=== PATIENT | male | born 1995 | race Caucasian/White ===

== ENCOUNTER → 2018-06-07 | Outpatient (CLI) | payer BC ==
--- NOTE | 2018-06-08 13:42 | RAD ---
CHEST PA LATERAL Clinical indications: PATIENT STATES COUGH AND SHORTNESS OF BREATH X 3 DAYS. COMPARISON: No previous chest x-ray available. Findings: No acute lung infiltrate or pleural effusion or pulmonary edema or lung mass or pneumothorax is seen. The heart size, pulmonary vasculature, mediastinum and both debra are unremarkable. The osseous structures appear intact. Impression: No acute radiographic abnormality is seen. Electronically signed by: Colton Miramontes MD (06/08/2018 1:38 PM) [facility]
== END | disposition home or self-care (01) ==
LOC: PMG 11:26
PROVIDERS: ATTEND Registered Nurse
DX: R06.02 Shortness of breath (principal); R05 Cough
CPT/HCPCS: 71046

== ENCOUNTER → 2019-01-12 | Outpatient (CLI) | payer BC ==
--- NOTE | 2019-01-12 11:01 | RAD ---
Indication:Right upper quadrant pain. TECHNIQUE: Grayscale, color Doppler and spectral waveform is of the abdomen obtained. COMPARISON:None FINDINGS: Visualized pancreas within normal limits. No aortic aneurysm. IVC is within normal limits. No gallstones, pericholecystic fluid or gallbladder wall thickening. Main portal vein is patent with hepatopedal flow. CBD measures 4 m in diameter and is within normal limits. Liver measures 16 cm in longest dimension and is normal in size with increased echogenicity. Right kidney measures 12.8 cm in length without hydronephrosis. Left kidney measures 12 cm in length without hydronephrosis. Spleen measures 12 cm in length and is normal in size. IMPRESSION: No cholelithiasis. Hepatic steatosis Electronically signed by: Damaso Lowry DO (01/12/2019 10:58 AM) [facility]
--- NOTE | 2019-01-12 15:07 | RAD ---
Indication abdominal pain TECHNIQUE: Upright and supine views of the abdomen pelvis COMPARISON: None FINDINGS: Visualized lung bases are clear. No abnormally dilated bowel loops or air-fluid levels. No abnormal calcification to suggest apparent renal stones. Visualized bones are within normal limits. Moderate colonic stool burden. IMPRESSION: Moderate chronic stool burden. No radiographic evidence of high-grade bowel obstruction. Electronically signed by: Damaso Lowry DO (01/12/2019 3:04 PM) [facility]
== END | disposition home or self-care (01) ==
LOC: US 09:41
PROVIDERS: ATTEND Physician Assistant
DX: K76.0 Fatty (change of) liver, not elsewhere classified (principal)
CPT/HCPCS: 74019; 76700

== ENCOUNTER → 2021-05-29 | Outpatient (CLI) | payer BC ==
--- NOTE | 2021-05-29 12:25 | RAD ---
AP and Lateral Views of the Chest 05/29/2021 11:41 AM Indication: Reason: COUGH, DYSPNEA / Spl. Instructions: / History: Comparison: Chest radiograph June 07, 2018 Findings: There is no focal consolidation or infiltrate identified. The heart size is normal. There i s no evidence of pneumothorax or pleural effusion. No acute osseous abnormalities are identified. Impression: No evidence of acute cardiopulmonary process. Electronically signed by: Jim Vieira MD (05/29/2021 12:23 PM) [id number]
== END ==
LOC: RAD 11:13
PROVIDERS: ATTEND Physician Assistant
DX: R06.00 Dyspnea, unspecified (principal); R05.9 Cough, unspecified
CPT/HCPCS: 71046